=== PATIENT | female | born 1970 | race Caucasian/White ===

== ENCOUNTER 2018-08-30 13:23 | Emergency (ER) | payer OTHER ==
[~2018-08-30] VITALS: Ht 162.6 cm; Wt 65.9 kg
[~2018-08-30 13:23] MED LIST: CHAN0.5P3 PO; FLON1SPR
[2018-08-30] MEDS ORDERED: ROBI1LIQ9 PO (13:33)
[2018-08-30] MEDS ORDERED: ALBUTEROL SULFATE 2.5 MG/0.5 ML INH NEB SOLN NEB ONE (15:30)
--- NOTE | 2018-08-30 16:36 | REP ---
Clinical: Cough and wheeze . Comparison: None . Technique: PA and lateral. Findings: The mediastinum and cardiac silhouette are normal. The lung lezama are clear and without acute consolidation, effusion, or pneumothorax. The skeletal structures are intact and normal. Impression: 1. No acute cardiopulmonary process. Electronically Signed by Toan Coleman MD 08/30/2018 04:28 P
[2018-08-30] MEDS ORDERED: ZITHTAB PO (16:51)
[2018-08-30] MEDS ORDERED: VENTAER INH (16:51)
[2018-08-30 16:57] VITALS: BP 122/65
== END 2018-08-30 16:57 | disposition home or self-care (01) ==
LOC: M ED 13:23
DX: J20.9 Acute bronchitis, unspecified (principal); I10 Essential (primary) hypertension; F17.210 Nicotine dependence, cigarettes, uncomplicated

== ENCOUNTER 2022-08-12 07:04 | Day surgery (SDC) | payer OTHER ==
[~2022-08-12] VITALS: Ht 162.6 cm; Wt 71.3 kg
[~2022-08-12 07:04] MED LIST changes: +LISI20TA37; +NS 1,000 ML IV ONE; +ROBI1LIQ9 PO; +VENTAER INH; +ZITHTAB PO
[2022-08-12] MEDS ORDERED: SIMETHICONE 40MG/0.6ML DROPS 30ML As Ordered ONE ×2 (07:15→07:16)
[2022-08-12] MEDS ORDERED: propofoL 200 MG/20 ML VIAL As Ordered ONE (07:50)
[2022-08-12] MEDS ORDERED: LIDOCAINE 2% 100MG/5ML SDV (FOR ANES.) As Ordered ONE (07:50)
[2022-08-12 08:49] VITALS: TEMP 96.8
[2022-08-12 09:23] VITALS: BP 153/96; O2SAT 97
== END 2022-08-12 09:24 | disposition home or self-care (01) ==
LOC: M OPP 07:04
PROVIDERS: ATTEND Internal Medicine Gastroenterology
DX: Z12.11 Encounter for screening for malignant neoplasm of colon (principal); Z80.0 Family history of malignant neoplasm of digestive organs; Z15.09 Genetic susceptibility to other malignant neoplasm; D12.3 Benign neoplasm of transverse colon; K64.0 First degree hemorrhoids; K57.30 Diverticulosis of large intestine without perforation or abscess without bleeding; I10 Essential (primary) hypertension; J45.909 Unspecified asthma, uncomplicated; F17.210 Nicotine dependence, cigarettes, uncomplicated; Z79.899 Other long term (current) drug therapy

== ENCOUNTER → 2023-02-24 | Outpatient (CLI) | payer OTHER ==
[~2023-02-24] MED LIST changes: -NS 1,000 ML IV ONE
== END ==
LOC: M CARPUL 07:46
PROVIDERS: ATTEND Family Medicine
DX: J39.3 Upper respiratory tract hypersensitivity reaction, site unspecified (principal)